=== PATIENT | female | born 1935 | race Caucasian/White ===

== ENCOUNTER 2016-07-03 07:21 | Day surgery (SDC) | payer MEDICARE, BC ==
--- NOTE | ~2016-07-03 | EGD ---
EGD REPORT [facility] [address] [address] NAME: SANDRA MCCONNELL : 39 STATUS : REG [facility]#: [id number] AGE: 81 ADM/REG DATE : 07/03/16 MR#: [id number] REPORT SERV DATE: 07/03/16 DICTATED BY: BJORN CONDE DATE: 07/03/16 REPORT STATUS : Draft TRANSCRIBED BY: [facility] DATE: 07/03/16 [facility] Center Patient Name: Sandra Mcconnell Date of : 1935 Attending MD: BJORN CONDE, Procedure Date No Time: 07/03/2016 Procedure: Upper EUS Indications: Abnormal abdominal PET scan. Uptake in stomach within hernia Referring MD: Herminio SUGGS Medicines: Monitored Anesthesia Care Complications: No immediate complications. Estimated blood loss: None. Procedure: Pre-Anesthesia Assessment: - ASA Grade Assessment: III - A patient with severe systemic disease. After obtaining informed consent, the endoscope was passed under direct vision. Throughout the procedure, the patient's blood pressure, pulse, and oxygen saturations were monitored continuously. The GIF [id number] was introduced through the mouth, and advanced to the second part of duodenum. The Endoscope was introduced through the mouth, and advanced to the second part of duodenum. Findings: Endoscopic Finding : LA Grade C (one or more mucosal breaks continuous between tops of 2 or more mucosal folds, less than 75% circumference) esophagitis with no bleeding was found in the lower third of the esophagus. Biopsies were taken with a cold forceps for histology. Verification of patient identification for the specimen was done. Estimated blood loss was minimal. Evidence of a Jorge Luis fundoplication was found in the gastric fundus. A paraesophageal hernia was found. The exam of the stomach was otherwise normal. The examined duodenum was endoscopically normal. Endosonographic Finding : Endosonographic images of the stomach were unremarkable. No masses were identified. There was no sign of significant endosonographic abnormality in the examined duodenum. There was no sign of significant endosonographic abnormality in the entire pancreas. The pancreas was well visualized, no masses, no calcifications, the pancreatic duct was well visualized from ampulla to tail, the pancreatic duct was regular in contour. EGD REPORT [address] [address] NAME: SANDRA MCCONNELL : 39 STATUS : REG [facility] [place] PAT#: [id number] AGE: 81 ADM/REG DATE : 07/03/16 MR#: [id number] REPORT SERV DATE: 07/03/16 DICTATED BY: BJORN CONDE DATE: 07/03/16 REPORT STATUS : Draft TRANSCRIBED BY: [employer] DATE: 07/03/16 There was no sign of significant endosonographic abnormality in the common bile duct. Impression: - LA Grade C reflux esophagitis. Biopsied. Suspect this (along with fundiplication) is likely resposiible for the PET/CT finding. - A Jorge Luis fundoplication was found. - Paraesophageal hernia. - Normal examined duodenum. - Endosonographic images of the stomach were unremarkable. - There was no sign of significant pathology in the examined duodenum. - There was no sign of significant pathology in the entire pancreas. - There was no sign of significant pathology in the common bile duct. Recommendation: - Return to previous diet. - Continue present medications. - Return to referring physician. Procedure Code(s): --- Professional --- 13949, Esophagogastroduodenoscopy, flexible, transoral; with endoscopic ultrasound examination limited to the esophagus, stomach or duodenum, and adjacent structures Diagnosis Code(s): --- Professional --- K21.0, Gastro-esophageal reflux disease with esophagitis Z98.89, Other specified postprocedural states K44.9, Diaphragmatic hernia without obstruction or gangrene R93.5, Abnormal findings on diagnostic imaging of other abdominal regions, including retroperitoneum CPT copyright 2013 [employer] [employer]. All rights reserved. The codes documented in this report are preliminary and upon stitch bonding machine tender review may be revised to meet current compliance requirements. BJORN CONDE, 07/03/2016 10:09 AM Number of Addenda: 0 Note Initiated On: 07/03/2016 9:36 AM EGD REPORT [facility] [address] [address] NAME: MOI MCCONNELLASHLEY HUI : 39 STATUS : REG [facility] [place] PAT#: [id number] AGE: 81 ADM/REG DATE : 07/03/16 MR#: [id number] REPORT SERV DATE: 07/03/16 DICTATED BY: BJORN CONDE DATE: 07/03/16 REPORT STATUS : Draft TRANSCRIBED BY: BETH PATEL DATE: 07/03/16 Scope Withdrawal Time 0 hours 0 minutes 0 seconds [address] [id number]
[~2016-07-03 07:21] MED LIST: ASAB PO; BYSTOLIC10 MG PO; HYDROCHLOROT25 MG PO; MULTIVITAMI1 PO; VASOTEC20 MG PO
[2016-07-03 08:01] LABS: BUN (BLOOD UREA NITROGEN) 13 MG/DL (6-23); CALCIUM, SERUM 9.1 MG/DL (8.5-10.4); CHLORIDE, SERUM 105 MMOL/L (96-112); CO2 (CARBON DIOXIDE) 29 MMOL/L (24-34); CREATININE 0.71 MG/DL (0.55-1.02); GFR AFRICAN AMERICAN 94 ML/MIN (>=60); GFR NON AFRICAN AMERICAN 81 ML/MIN (>=60); GLUCOSE, SERUM 92 MG/DL (60-99); POTASSIUM, SERUM 3.5 MMOL/L (3.5-5.3); SODIUM, SERUM 143 MMOL/L (135-148)
== END 2016-07-03 23:59 | disposition home or self-care (01) ==
LOC: DMU 07:21
PROVIDERS: Anesthesiology; Internal Medicine Gastroenterology
PROC: 0DB38ZX Excision of Lower Esophagus, Via Natural or Artificial Opening Endoscopic, Diagnostic (ICD-10-PCS; 2016-07-03)
PROC: 0DJ08ZZ Inspection of Upper Intestinal Tract, Via Natural or Artificial Opening Endoscopic (ICD-10-PCS; principal; 2016-07-03 10:00)
DX: K20.9 Esophagitis, unspecified (principal); K44.9 Diaphragmatic hernia without obstruction or gangrene; I10 Essential (primary) hypertension; M06.9 Rheumatoid arthritis, unspecified; F41.9 Anxiety disorder, unspecified; Z96.1 Presence of intraocular lens; Z98.41 Cataract extraction status, right eye; Z98.42 Cataract extraction status, left eye; Z90.49 Acquired absence of other specified parts of digestive tract; Z90.710 Acquired absence of both cervix and uterus; Z98.890 Other specified postprocedural states; Z79.82 Long term (current) use of aspirin; Z79.899 Other long term (current) drug therapy
CPT/HCPCS: 80048; 88305; C1725